=== PATIENT | female | born 1990 | race Caucasian/White ===

== ENCOUNTER 2016-10-03 15:25 | Emergency (ER) | payer BC ==
[2016-10-03] MEDS ORDERED: Aspirin Low Dose CHEW TAB* 81 MG PO ONE (19:48)
[2016-10-03 20:56] LABS: Hematocrit 39 % (35-47); Hemoglobin 12.8 g/dl (12.0-16.0); Mean Corpuscular HGB Conc 33 g/dl (31-36); Mean Corpuscular Hemoglobin 30 pg (27-31); Mean Corpuscular Volume 90 fL (80-97); Mean Platelet Volume 9 um3 (7.4-10.4); Red Blood Count 4.36 10^6/ul (4.0-5.4); Red Cell Distribution Width 13 % (10.5-15); White Blood Count 11.3 10^3/ul (3.5-10.8)
[2016-10-03 21:12] LABS: ALT 11 U/L (7-52); AST 14 U/L (13-39); Albumin 4.6 g/dL (3.2-5.2); Alkaline Phosphatase 47 U/L (34-104); Anion Gap 8 mmol/L (2-11); BUN/Creatinine Ratio 17.8 (8-20); Blood Urea Nitrogen 13 mg/dL (6-24); CO2 Carbon Dioxide 22 mmol/L (22-32); Calcium 9.9 mg/dL (8.6-10.3); Chloride 105 mmol/L (101-111); EGFR African American 124.9 (>60); EGFR Non-African American 97.1 (>60); Globulin 2.9 g/dL (2-4); Glucose 88 mg/dL (70-100); Potassium 3.8 mmol/L (3.5-5.0); Sodium 135 mmol/L (133-145); Total Protein 7.5 g/dL (6.4-8.9)
--- NOTE | 2016-10-03 21:12 | RAD ---
INDICATION: Chest pain. COMPARISON: There are no prior studies available for comparison. TECHNIQUE: Dual-energy PA and lateral views of the chest were obtained. FINDINGS: The heart is within normal limits in size. Mediastinal and hilar contours appear within normal limits. The lungs are clear. No pleural effusion or pneumothorax is seen. IMPRESSION: NO EVIDENCE FOR ACTIVE CARDIOPULMONARY DISEASE.
--- NOTE | 2016-10-03 22:11 | ED ---
Chris Jimenes Alfonso, scribed for Seamus Villarreal on 10/03/16 at 1943 . HPI Chest Pain - HPI Summary HPI Summary: This patient is a 25 year old F presenting to [facility] accompanied by male with a chief complaint of left sided chest pain present between 0700 and 1430 today. The patient rates the current pain 0/10 in severity. Symptoms aggravated by nothing and alleviated by spontaneous resolution. Patient reports SOB (at approximately noon which has resolved). She presented to [facility] urgent care earlier today where a CXR was ordered. - History of Current Complaint Chief Complaint: EDChestPainROMI Time Seen by Provider: 10/03/16 19:28 Hx Obtained From: Patient Onset/Duration: Started Hours Ago - 0700 to 1430 today, Resolved Timing: Constant Initial Severity: Moderate Current Severity: None Pain Intensity: 0 Pain Scale Used: 0-10 Numeric Chest Pain Location: Left Anterior, Left Lateral Aggravating Factor(s): Nothing Alleviating Factor(s): Spontaneous Resolution Associated Signs and Symptoms: Positive: Shortness of Breath - Allergy/Home Medications Allergies/Adverse Reactions: Allergies Allergy/AdvReac Type Severity Reaction Status Date / Time Morphine Allergy Hives Verified 10/03/16 15:33 PMH/Surg Hx/FS Hx/Imm Hx Sensory History: Denies: Hx Deafness Opthamlomology History: Denies: Hx Legally Blind - Surgical History Surgery Procedure, Year, and Place: Infectious Disease History: No Infectious Disease History: Denies: History Other Infectious Disease, Traveled Outside the [place] in Last 30 Days - Family History Known Family History: Negative: Blood Disorder - Social History Alcohol Use: Occasionally Substance Use Type: Reports: None Smoking Status (MU): Never Smoked Tobacco Review of Systems Negative: Fever Positive: Chest Pain Positive: Shortness Of Breath All Other Systems Reviewed And Are Negative: Yes Physical Exam Triage Information Reviewed: Yes Vital Signs On Initial Exam: Initial Vitals Temp Pulse Resp BP Pulse Ox 98.6 F 85 16 131/68 97 10/03/16 15:34 10/03/16 15:34 10/03/16 15:34 10/03/16 15:34 10/03/16 15:34 Vital Signs Reviewed: Yes Appearance: Positive: Well-Appearing, No Pain Distress Skin: Positive: Warm, Skin Color Reflects Adequate Perfusion, Dry Head/Face: Positive: Normal Head/Face Inspection Eyes: Positive: EOMI, LATANYA ENT: Positive: Normal ENT inspection Neck: Positive: Supple, Nontender Respiratory/Lung Sounds: Positive: Clear to Auscultation, Breath Sounds Present Cardiovascular: Positive: RRR, Pulses are Symmetrical in both Upper and Lower Extremities Abdomen Description: Positive: Nontender, Soft Bowel Sounds: Positive: Present Musculoskeletal: Positive: Normal, Strength/ROM Intact Neurological: Positive: Normal, Sensory/Motor Intact, Alert, Oriented to Person Place, Time - Rober Coma Scale Coma Scale Total: 15 Diagnostics - Vital Signs Vital Signs Temp Pulse Resp BP Pulse Ox 10/03/16 19:00 74 10 107/71 99 10/03/16 18:46 77 15 100/71 100 10/03/16 18:43 98 F 77 16 100/71 100 10/03/16 18:21 19 10/03/16 18:20 80/49 10/03/16 17:21 97.9 F 94 16 132/73 99 10/03/16 15:34 98.6 F 85 16 131/68 97 - Laboratory Result Diagrams: 10/03/16 20:45 10/03/16 20:45 Lab Statement: Any lab studies that have been ordered have been reviewed, and results considered in the medical decision making process. - Radiology CXR Radiology Interpretation Completed By: Radiologist - NO EVIDENCE FOR ACTIVE CARDIOPULMONARY DISEASE. - EKG 1540 Cardiac Rate: NL - BPM 83 EKG Rhythm: Sinus Rhythm ST Segment: Normal Chest Pain Course/Dx - Course Assessment/Plan: This patient is a 25 year old F [facility] accompanied by male with a chief complaint of left sided chest pain present between 0700 and 1430 today. The patient rates the current pain 0/10 in severity. Symptoms aggravated by nothing and alleviated by spontaneous resolution. Patient reports SOB (at approximately noon which has resolved). An EKG reveals NSR. CXR reveals NO EVIDENCE FOR ACTIVE CARDIOPULMONARY DISEASE. Patient will be discharged with follow up from PCP. The patient is agreeable with this plan. - Diagnoses Provider Diagnoses: Atypical chest pain Discharge - Discharge Plan Condition: Stable Disposition: HOME Patient Education Materials: Chest Pain (ED) Referrals: [facility] PHYSICIAN REFERRAL [Outside] - 3 Days The documentation as recorded by the Chris millard Alfonso accurately reflects the service I personally performed and the decisions made by me, Seamus Villarreal.
[2016-10-03 22:37] VITALS: BP 107/60
== END 2016-10-03 22:41 | disposition home or self-care (01) ==
LOC: ED 15:25
DX: R07.89 Other chest pain (principal); R06.02 Shortness of breath
CPT/HCPCS: 36415; 71020; 80053; 83735; 84484; 84702; 85025; 85379; 85610; 85730; 93005; 99283

== ENCOUNTER 2017-06-08 18:53 | Emergency (ER) | payer BC ==
--- NOTE | 2017-06-08 18:59 | UC ---
Cardiac HPI - HPI Summary HPI Summary: Pt presents with epigastric pain and SOB the began around 1000 this morning. She tells me that her pain began abruptly and has seemed to get progressively worse throughout the day. Has never had pain like this before, but says her mom has GERD and wonders if this is the what she has. Also reports feeling nauseous and has had a decreased appetite today. Has also had cold like symptoms for the last few days with mild sinus congestion and intermittent cough. Denies fever, chills, dysuria, headache, or dizziness. - History of Current Complaint Stated Complaint: PAIN WITH INHALATION Time Seen by Provider: 06/08/17 18:58 Hx Obtained From: Patient Hx Last Menstrual Period: 10/27/15 Onset/Duration: Sudden Onset Initial Severity: Mild Current Severity: Moderate Pain Intensity: 7 Chest Pain Location: Lower Sternal - Allergy/Home Medications Allergies/Adverse Reactions: Allergies Allergy/AdvReac Type Severity Reaction Status Date / Time morphine Allergy Hives Verified 06/08/17 19:12 Home Medications: Home Medications NK [No Home Medications Reported] 06/08/17 [History Confirmed 06/08/17] PMH/Surg Hx/FS Hx/Imm Hx - Additional Past Medical History Additional PMH: None Previously Healthy: Yes - Surgical History Surgical History: Yes Surgery Procedure, Year, and Place: - Family History Known Family History: Negative: Blood Disorder - Social History Occupation: Employed Full-time Lives: With Family Alcohol Use: Occasionally Substance Use Type: None Smoking Status (MU): Never Smoked Tobacco Review of Systems Constitutional: Negative Skin: Negative Eyes: Negative ENT: Negative Respiratory: Shortness Of Breath Cardiovascular: Chest Pain Gastrointestinal: Nausea, Other - Epigastric pain Genitourinary: Negative Motor: Negative Neurovascular: Negative Musculoskeletal: Negative Neurological: Negative Psychological: Negative All Other Systems Reviewed And Are Negative: Yes Physical Exam - Summary Physical Exam Summary: GENERAL: NAD. WDWN. No pain distress. SKIN: No rashes, sores, ulcers, masses, lesions. NECK: Supple. Nontender. No lymphadenopathy. CHEST: CTAB. No r/r/w. No accessory muscle use. Breathing comfortably and in no distress. CV: RRR. Without m/r/g. Pulses intact. Brisk cap refill. ABDOMEN: Moderate TTP over epigastric region. Soft. No distention or guarding. , No organomegaly. No CVA tenderness. Bowel sounds present x4. NEURO: Alert. CN II-XII grossly intact. PSYCH: Age appropriate behavior. Triage Information Reviewed: Yes - Assessment/Plan Course Of Treatment: EKG NSR 75bpm no ST elevation as read by Dr. Ayala. Given her abrupt onset of symptoms, subjective SOB, and epigastric pain - I advised pt to seek further evaluation in the ED. She was agreeable to this plan - declined ambulance and her partner will drive her. - Clinical Impression Provider Diagnoses: Epigastric pain. SOB Discharge - Sign-Out/Discharge Documenting (check all that apply): Discharge - Discharge Plan Condition: Stable Disposition: HOME Referrals: No Primary Care Phys,NOPCP [Primary Care Provider] - Additional Instructions: Please go directly to the [facility] [place] ER for further evaluation of your upper abdominal pain and nausea. - Billing Disposition and Condition Condition: STABLE Disposition: HOME
[2017-06-08 19:12] VITALS: BP 116/81
== END 2017-06-08 19:30 | disposition home or self-care (01) ==
LOC: UCEAST 18:53
DX: R10.13 Epigastric pain (principal); R06.02 Shortness of breath; Z88.5 Allergy status to narcotic agent
CPT/HCPCS: 93005; 99212; G0463

== ENCOUNTER 2017-06-08 19:47 | Emergency (ER) | payer BC ==
[2017-06-08] MEDS ORDERED: Famotidine TAB* 20 MG PO ONE (20:39)
[2017-06-08] MEDS ORDERED: Ondansetron INJ* 2 MG/ML VIAL IV ONE (21:52)
[2017-06-08] MEDS ORDERED: NS 0.9% 1000 ML* 1,000 ML IV ONE (21:52)
[2017-06-08] MEDS ORDERED: diPHENhydraMINE IV* 50 MG/ML 1 ml VIAL (BENADRYL) IV ONE (21:53)
[2017-06-08] MEDS ORDERED: Morphine VIAL* 10 MG/ML 1 ML VIAL IV ONE (21:53)
[2017-06-08] MEDS ORDERED: Morphine VIAL* 4 MG/ML VIAL (1 ml vial) IV ONE ×2 (22:15→22:20)
[2017-06-08 22:36] LABS: ABS Basophils 0.1 10^3/ul (0-0.2); ABS Eosinophils 0.1 10^3/ul (0-0.6); ABS Lymphocytes 2.9 10^3/ul (1.0-4.8); ABS Monocytes 0.7 10^3/ul (0-0.8); ABS Neutrophils 6.3 10^3/ul (1.5-7.7); ABS Nucleated RBC 0 10^3/ul; Hematocrit 39 % (35-47); Hemoglobin 13.1 g/dl (12.0-16.0); Lymphocyte % 28.9 % (25-47); Mean Corpuscular HGB Conc 34 g/dl (31-36); Mean Corpuscular Hemoglobin 30 pg (27-31); Mean Corpuscular Volume 90 fL (80-97); Mean Platelet Volume 9.1 um3 (7.4-10.4); Nucleated Red Blood Cells % 0.1; Platelet Count 238 10^3/ul (150-450); Red Blood Count 4.31 10^6/ul (4.0-5.4); Red Cell Distribution Width 13 % (10.5-15)
[2017-06-08 22:37] LABS: Urine Appearance Clear; Urine Blood Negative (Negative); Urine Color Straw; Urine Ketones Negative (Negative); Urine Protein Negative (Negative); Urine Specific Gravity 1.008 (1.010-1.030); Urine Urobilinogen Negative (Negative)
[2017-06-08 22:57] LABS: EGFR Non-African American 96.4 (>60)
--- NOTE | 2017-06-08 22:57 | ED ---
Abdominal Pain/Female - HPI Summary HPI Summary: Complains of epigastric pain radiating to right upper quadrant and back, with associated nausea starting at 10 AM today. Abdominal pain is new onset, constant, achy, worse with movement, worse after meals. Nausea is intermittent , worse with movement. Patient was seen at , sent to the ED for further evaluation. Denies fever, cough, sore throat, CP, SOB, V/D, change in urine, vaginal symptoms, change in BM. Abdominal/pelvic surgical history 1. Denies regular EtOH. - History of Current Complaint Chief Complaint: EDAbdPain Stated Complaint: ABD PAIN Time Seen by Provider: 06/08/17 21:33 Hx Obtained From: Patient Hx Last Menstrual Period: 10/27/15 Onset/Duration: Sudden Onset Timing: Constant Severity Initially: Mild Severity Currently: Moderate Pain Intensity: 8 Pain Scale Used: 0-10 Numeric Location: Discrete At: RUQ, Epigastric Radiates to: Back Character: Cramping Aggravating Factor(s): Food, Movement Alleviating Factor(s): Nothing Associated Signs and Symptoms: Positive: Back Pain, Nausea - Risk Factors Ectopic Risk Factor: Negative Ovarian Torsion Risk Factor: Negative Allergies/Adverse Reactions: Allergies Allergy/AdvReac Type Severity Reaction Status Date / Time morphine Allergy Hives Verified 06/08/17 19:52 PMH/Surg Hx/FS Hx/Imm Hx Sensory History: Denies: Hx Legally Blind, Hx Deafness Opthamlomology History: Denies: Hx Legally Blind - Surgical History Surgery Procedure, Year, and Place: Infectious Disease History: No Infectious Disease History: Denies: History Other Infectious Disease, Traveled Outside the [place] in Last 30 Days - Family History Known Family History: Negative: Blood Disorder - Social History Alcohol Use: Occasionally Substance Use Type: Reports: None Smoking Status (MU): Never Smoked Tobacco Review of Systems Constitutional: Negative Eyes: Negative ENT: Negative Cardiovascular: Negative Respiratory: Negative Positive: Abdominal Pain, Nausea Genitourinary: Negative Musculoskeletal: Negative Skin: Negative Neurological: Negative Psychological: Normal All Other Systems Reviewed And Are Negative: Yes Physical Exam - Summary Physical Exam Summary: Negative Edwards's. Positive right lower quadrant pain with palpation. No pain with palpation of any other quadrant. Triage Information Reviewed: Yes Vital Signs On Initial Exam: Initial Vitals Temp Pulse Resp BP Pulse Ox 97.3 F 73 18 116/85 98 06/08/17 19:49 06/08/17 19:49 06/08/17 19:49 06/08/17 19:49 06/08/17 19:49 Vital Signs Reviewed: Yes Appearance: Positive: Well-Appearing Skin: Positive: Warm Head/Face: Positive: Normal Head/Face Inspection Eyes: Positive: Normal Neck: Positive: Supple Respiratory/Lung Sounds: Positive: Clear to Auscultation Cardiovascular: Positive: Normal Abdomen Description: Positive: Other: Musculoskeletal: Positive: Normal Neurological: Positive: Normal Psychiatric: Positive: Normal AVPU Assessment: Alert - Rober Coma Scale Best Eye Response: 4 - Spontaneous Best Motor Response: 6 - Obeys Commands Best Verbal Response: 5 - Oriented Coma Scale Total: 15 Diagnostics - Vital Signs Vital Signs Temp Pulse Resp BP Pulse Ox 06/08/17 22:21 18 06/08/17 19:49 97.3 F 73 18 116/85 98 - Laboratory Lab Results: Lab Results 06/08/17 06/08/17 Range/Units 22:05 22:05 WBC 10.0 (3.5-10.8) 10^3/ul RBC 4.31 (4.0-5.4) 10^6/ul Hgb 13.1 (12.0-16.0) g/dl Hct 39 (35-47) % MCV 90 (80-97) fL MCH 30 (27-31) pg MCHC 34 (31-36) g/dl RDW 13 (10.5-15) % Plt Count 238 (150-450) 10^3/ul MPV 9.1 (7.4-10.4) um3 Neut % (Auto) 62.9 (38-83) % Lymph % (Auto) 28.9 (25-47) % [place] % (Auto) 6.6 (0-7) % Eos % (Auto) 1.0 (0-6) % Baso % (Auto) 0.6 (0-2) % Absolute Neuts (auto) 6.3 (1.5-7.7) 10^3/ul Absolute Lymphs (auto) 2.9 (1.0-4.8) 10^3/ul Absolute Monos (auto) 0.7 (0-0.8) 10^3/ul Absolute Eos (auto) 0.1 (0-0.6) 10^3/ul Absolute Basos (auto) 0.1 (0-0.2) 10^3/ul Absolute Nucleated RBC 0 10^3/ul Nucleated RBC % 0.1 Urine Color Straw Urine Appearance Clear Urine pH 6.0 (5-9) Ur Specific Advance 1.008 L (1.010-1.030) Urine Protein Negative (Negative) Urine Ketones Negative (Negative) Urine Blood Negative (Negative) Urine Nitrate Negative (Negative) Urine Bilirubin Negative (Negative) Urine Urobilinogen Negative (Negative) Ur Leukocyte Esterase Negative (Negative) Urine Glucose Negative (Negative) Result Diagrams: 06/08/17 22:05 06/08/17 22:05 Lab Statement: Any lab studies that have been ordered have been reviewed, and results considered in the medical decision making process. - CT ab/pel CT Interpretation: No Acute Changes CT Interpretation Completed By: Radiologist Re-Evaluation - Re-Evaluation 1 Re-Evaluation Time: 02:39 Change: Improved Comment: Patient resting comfortably. States pain and nausea have been controlled. Abdominal Pain Fem Course/Dx - Course Course Of Treatment: Labs and imaging unremarkable. Symptoms controlled Patient will be sent home with medication for nausea and pain control. - Diagnoses Provider Diagnoses: Epigastric pain, Nausea Discharge - Sign-Out/Discharge Documenting (check all that apply): Discharge - Discharge Plan Condition: Stable Disposition: HOME Patient Education Materials: Biliary Colic (ED), Epigastric Pain (ED), Gastroesophageal Reflux Disease (ED) Referrals: No Primary Care Phys,NOPCP [Primary Care Provider] - Jak Markhma MD [Medical Doctor] - Additional Instructions: Follow-up with GI specialist Dr. Markham. Return to the ED for any new or worsening symptoms - Billing Disposition and Condition Condition: STABLE Disposition: HOME
[2017-06-08] MEDS ORDERED: Iohexol 300* (CONTRAST) 10 ML SDV IV ONE (23:28)
[2017-06-09 03:31] VITALS: BP 120/70
--- NOTE | 2017-06-09 08:02 | RAD ---
CLINICAL HISTORY: Abdominal pain COMPARISON: CT abdomen pelvis dated July 16, 2009 TECHNIQUE: Contrast enhanced CT examination of the abdomen and pelvis from the lung bases through the initial tuberosities. The patient received 100 mL Omnipaque 300 intravenously prior to imaging. FINDINGS: VISUALIZED LUNG BASES: The visualized lung bases are grossly clear. There is no pleural effusion. ABDOMEN AND PELVIS: The right lobe of the liver there is a 9 mm hypoattenuating focus (axial image 11) exhibiting peripheral enhancement characteristic of a hemangioma. The liver is otherwise homogenous in attenuation. The spleen, pancreas and adrenal glands are grossly normal in appearance. The gallbladder is normal. The kidneys are normal in appearance without focal mass, calcification or signs of hydronephrosis. Evaluation of the gastrointestinal tract is limited without oral contrast. The small and large bowel are not distended. The patient's normal appendix is identified in the right lower quadrant measuring just under 7 mm in diameter (coronal image 43). There is no gross retroperitoneal or mesenteric lymphadenopathy. The pelvic viscera is normal in appearance. The abdominal aorta and iliac arteries are normal in course and diameter. There are no sinister bone lesions. IMPRESSION: 1. No CT apparent acute abnormality. 2. Likely hemangioma in the right lobe of the liver. On a nonemergent basis this can be further characterized with liver ultrasound.
== END 2017-06-09 03:33 | disposition home or self-care (01) ==
LOC: ED 19:47
DX: M54.9 Dorsalgia, unspecified (principal); R11.0 Nausea; R10.13 Epigastric pain
CPT/HCPCS: 36415; 74177; 80053; 81003; 83605; 83690; 84702; 85025; 86140; 96374; 96375; 99284; A9270-GY; J1200; J2270; J2405; Q9967

== ENCOUNTER 2017-08-11 10:16 | Emergency (ER) | payer BC ==
[2017-08-11 10:31] VITALS: BP 128/89
--- NOTE | 2017-08-11 11:41 | UC ---
Kori Jimenes Jacob, scribed for Iron Estrada MD on 08/11/17 at 1103 . Neck Pain HPI - HPI Summary HPI Summary: PT is a 26 y/o female presenting w/ neck pain alongside headache, muscle aches, and fatigue. Pt went to bed at 2200 and woke up due to pain at midnight on . Pt states that she had severe pain in the right side of the back of the neck. Neck pain at the time is described as shooting. During the day, she states that she experienced some finger numbness, but this passed. She had a sore throat on 08/09/17, but these symptoms resolved. On 08/10/17 pt states symptoms improved slightly but returned later in the day. She feels exhausted and lethargic and rates neck pain 3/10 today. Pt says she also currently has a HOWARD in back of her head and some lower back pain. Pt notes some pain to left of periumbilical which waxes and wanes, currently rates this pain 2/10. She denies cough, chest congestion, diarrhea, rhinorrhea, and rash. She has no apparent insect bites and has not been out in the [place] recently. 08/08/17 was her LNMP and she denies possibility of . - History of Current Complaint Chief Complaint: UCRespiratory Stated Complaint: CHILLS,FEVER,FATIGUE Time Seen by Provider: 08/11/17 10:26 Hx Obtained From: Patient Hx Last Menstrual Period: 08/08/17 ?: No Onset/Duration Of Injury/Symptoms: Days - 2 days ago Timing: Constant Onset/Duration: Sudden Onset Severity: Mild Pain Intensity: 3 Pain Scale Used: 0-10 Numeric - 3/10 Location: Discrete At: - right upper part of the back of the neck Character: Sharp - described as shooting Aggravating Factors: Other: - upper right part of back neck is tender to palpation Associated Signs & Symptoms: Positive: Headache - back of head - Allergies/Home Medications Allergies/Adverse Reactions: Allergies Allergy/AdvReac Type Severity Reaction Status Date / Time morphine Allergy Hives Verified 08/11/17 10:31 PMH/Surg Hx/FS Hx/Imm Hx Endocrine History: Diabetes - Negative Cardiovascular History: Hypertension - Negative Cancer History: Other - Negative Other Cancer History: . - Surgical History Surgical History: Yes Surgery Procedure, Year, and Place: - Family History Known Family History: Negative: Blood Disorder - Social History Alcohol Use: Occasionally Substance Use Type: None Smoking Status (MU): Never Smoked Tobacco Review Of Systems Constitutional: Positive: Chills, Fatigue. Negative: Fever Skin: Negative: Rash ENT: Negative: Sore Throat - currently resolved Respiratory: Negative: Cough, Other - SOB Gastrointestinal: Negative: Diarrhea Genitourinary: Negative: Dysuria Musculoskeletal: Positive: Myalgia, Other: - lower back and neck pain Neurological: Positive: Headache - back of head All Other Systems Reviewed And Are Negative: Yes Physical Exam - Summary Physical Exam Summary: General: well-appearing, no pain distress Skin: warm, color reflects adequate perfusion, dry Head: normal Eyes: EOMI, LATANYA ENT: normal Neck: no acute distress, mildly tender to palpation on lateral neck sections. Supple, FROM Respiratory: CTA, breath sounds present Cardiovascular: RRR Abdomen: minimal tenderness to left of periumbilical, pain 2/10. No rebound. Bowel: present Musculoskeletal: normal, strength/ROM intact Neurological: sensory/motor intact, A&O x3 Psychological: affect/mood appropriate Triage Information Reviewed: Yes Vital Signs: Initial Vital Signs Temp 99.5 F 08/11/17 10:29 Pulse 86 08/11/17 10:29 Resp 16 08/11/17 10:29 BP 128/89 08/11/17 10:29 Pulse Ox 100 08/11/17 10:29 Vital Signs Reviewed: Yes Neck Pain Course/Dx - Course Course Of Treatment: NECK IS NOT STIFF ON EXAM. NON TOXIC APPEARANCE. HE IS OCCIPITAL AND NOT GLOBAL. PATIENT'S FATHER BEING TREATED FOR LYME. DISCUSSED S/ SX OF MENINGITIS WHICH CLINICALLY, TASHA DOES NOT HAVE AT THIS TIME. DISCUSSED THE NEED TO GET EVALUATED IN THE ED IF HAVING SX OF MENINGITIS. F/U PMD; RETURN SOONER IF WORSE. - Differential Dx/Diagnosis Provider Diagnoses: MYALGIAS. FEVER Discharge - Sign-Out/Discharge Documenting (check all that apply): Discharge/Admit/Transfer - Discharge Plan Condition: Stable Disposition: HOME Prescriptions: DOXYcycline CAP(*) [DOXYcycline 100MG CAP(*)] 100 mg PO BID #28 cap Patient Education Materials: Fever in Adults (ED) Referrals: [facility] [Outside] No Primary Care Phys,NOPCP [Primary Care Provider] - Additional Instructions: FOLLOW UP WITH YOUR DOCTOR. AT THIS TIME, YOUR EXAM DOES NOT INDICATE A SERIOUS INFECTION SUCH MENINGITIS HOWEVER, IF YOU HAVE ANY SYMPTOMS OF MENINGITIS GET EVALUATED IN THE EMERGENCY DEPARTMENT. GET RECHECKED FOR ANY WORSENING OF YOUR CONDITION; WORSENING OR PERSISTENT HEADACHE/NECK PAIN, YOU FEEL ILL OR QUESTIONS OR CONCERNS. - Billing Disposition and Condition Condition: STABLE Disposition: Home The documentation as recorded by the Kori millard Jacob accurately reflects the service I personally performed and the decisions made by me, Iron Estrada MD.
[2017-08-11 15:38] LABS: ABS Basophils 0 10^3/ul (0-0.2); ABS Eosinophils 0 10^3/ul (0-0.6); ABS Lymphocytes 1.4 10^3/ul (1.0-4.8); ABS Monocytes 0.3 10^3/ul (0-0.8); ABS Neutrophils 3.8 10^3/ul (1.5-7.7); ABS Nucleated RBC 0 10^3/ul; Eosinophil % 0.5 % (0-6); Hematocrit 36 % (35-47); Lymphocyte % 24.7 % (25-47); Mean Corpuscular HGB Conc 34 g/dl (31-36); Mean Corpuscular Hemoglobin 30 pg (27-31); Mean Corpuscular Volume 91 fL (80-97); Mean Platelet Volume 9.1 um3 (7.4-10.4); Nucleated Red Blood Cells % 0; Platelet Count 219 10^3/ul (150-450); Red Blood Count 3.95 10^6/ul (4.00-5.40); Red Cell Distribution Width 13 % (10.5-15); White Blood Count 5.5 10^3/ul (3.5-10.8)
[2017-08-11 16:05] LABS: EGFR Non-African American 114.2 (>60)
--- NOTE | 2017-08-12 09:00 | UC ---
- Progress Note Progress Note: CBC/CMP/mag - wnl CRP - slightly elevated no change in treatment plan 08/12/2017 900 ljj Discharge - Sign-Out/Discharge Documenting (check all that apply): Post-Discharge Follow Up - Discharge Plan Condition: Stable Disposition: HOME Prescriptions: DOXYcycline CAP(*) [DOXYcycline 100MG CAP(*)] 100 mg PO BID #28 cap Patient Education Materials: Fever in Adults (ED) Referrals: [facility] PHYSICIAN REFERRAL [Outside] No Primary Care Phys,NOPCP [Primary Care Provider] - Additional Instructions: FOLLOW UP WITH YOUR DOCTOR. AT THIS TIME, YOUR EXAM DOES NOT INDICATE A SERIOUS INFECTION SUCH MENINGITIS HOWEVER, IF YOU HAVE ANY SYMPTOMS OF MENINGITIS GET EVALUATED IN THE EMERGENCY DEPARTMENT. GET RECHECKED FOR ANY WORSENING OF YOUR CONDITION; WORSENING OR PERSISTENT HEADACHE/NECK PAIN, YOU FEEL ILL OR QUESTIONS OR CONCERNS. - Billing Disposition and Condition Condition: STABLE Disposition: Home
== END 2017-08-11 11:01 | disposition home or self-care (01) ==
LOC: UCEAST 10:16
DX: M79.1 Myalgia (principal); R50.9 Fever, unspecified; R51 Headache; R53.83 Other fatigue; M54.2 Cervicalgia
CPT/HCPCS: 36415; 80053; 85025; 86140; 86618; 99212; G0463

== ENCOUNTER 2018-04-27 12:37 | Emergency (ER) | payer BC ==
[2018-04-27 13:32] LABS: Urine Appearance Clear; Urine Bilirubin Negative (Negative); Urine Blood Negative (Negative); Urine Color Colorless; Urine Glucose Negative (Negative); Urine Ketones Trace (Negative); Urine Nitrite Negative (Negative); Urine Protein Negative (Negative); Urine Specific Gravity 1.002 (1.010-1.030); Urine Urobilinogen Negative (Negative)
[2018-04-27 15:02] LABS: ABS Basophils 0 10^3/ul (0-0.2); ABS Eosinophils 0 10^3/ul (0-0.6); ABS Lymphocytes 1.8 10^3/ul (1.0-4.8); ABS Monocytes 0.5 10^3/ul (0-0.8); ABS Neutrophils 7.7 10^3/ul (1.5-7.7); ABS Nucleated RBC 0 10^3/ul; Eosinophil % 0.2 %; Hematocrit 39 % (35-47); Hemoglobin 13.1 g/dl (12.0-16.0); Mean Corpuscular HGB Conc 34 g/dl (31-36); Mean Corpuscular Hemoglobin 30 pg (27-31); Mean Corpuscular Volume 90 fL (80-97); Mean Platelet Volume 9.4 fL (7.4-10.4); Nucleated Red Blood Cells % 0; Platelet Count 247 10^3/ul (150-450); Red Blood Count 4.34 10^6/ul (4.00-5.40); Red Cell Distribution Width 13 % (10.5-15); White Blood Count 10.1 10^3/ul (3.5-10.8)
[2018-04-27 15:16] LABS: ALT 9 U/L (7-52); AST 13 U/L (13-39); Albumin 4.7 g/dL (3.2-5.2); Albumin/Globulin Ratio 1.7 (1-3); Alkaline Phosphatase 44 U/L (34-104); Anion Gap 9 mmol/L (2-11); Blood Urea Nitrogen 15 mg/dL (6-24); CO2 Carbon Dioxide 23 mmol/L (22-32); Calcium 9.6 mg/dL (8.6-10.3); Chloride 104 mmol/L (101-111); EGFR African American 145.1 (>60); EGFR Non-African American 119.9 (>60); Globulin 2.8 g/dL (2-4); Glucose 87 mg/dL (70-100); Sodium 136 mmol/L (135-145); Total Protein 7.5 g/dL (6.4-8.9)
[2018-04-27 15:19] LABS: HCG Pregnancy < 0.60 mIU/mL
[2018-04-27] MEDS ORDERED: Ondansetron INJ* 2 MG/ML VIAL IV ONE (16:47)
[2018-04-27] MEDS ORDERED: NS 0.9% 1000 ML** 1,000 ML IV ONE (16:47)
[2018-04-27] MEDS ORDERED: Iohexol 300* (CONTRAST) 10 ML SDV IV ONE (18:21)
--- NOTE | 2018-04-27 20:30 | ED ---
Abdominal Pain/Female - HPI Summary HPI Summary: Patient complains of sudden onset right lower quadrant pain and nausea starting this a.m. the abdominal pain described as new onset, constant, radiating to right side back. Denies history of ovarian cysts, fever, cough, sore throat, CP , SOB, V/D, change in urine, change in BM, vaginal symptoms. Medical history is none. Abdominal surgical history . - History of Current Complaint Chief Complaint: EDAbdPain Stated Complaint: LOWER ABD PAIN PER PT Time Seen by Provider: 04/27/18 16:31 Hx Obtained From: Patient Hx Last Menstrual Period: 08/08/17 Onset/Duration: Sudden Onset, Lasting Hours Timing: Constant Severity Initially: Severe Severity Currently: Severe Pain Intensity: 8 Pain Scale Used: 0-10 Numeric Location: Discrete At: RLQ Radiates: Yes Radiates to: Back, Flank Character: Sharp Aggravating Factor(s): Nothing Alleviating Factor(s): Nothing Associated Signs and Symptoms: Positive: Nausea Allergies/Adverse Reactions: Allergies Allergy/AdvReac Type Severity Reaction Status Date / Time morphine Allergy Hives Verified 08/11/17 10:31 PMH/Surg Hx/FS Hx/Imm Hx Endocrine/Hematology History: Denies: Hx Diabetes Cardiovascular History: Denies: Hx Hypertension History: Denies: Hx Renal Disease Sensory History: Denies: Hx Legally Blind, Hx Deafness Opthamlomology History: Denies: Hx Legally Blind EENT History: Denies: Hx Deafness Neurological History: Denies: Hx Dementia Psychiatric History: Denies: Hx Autism - Surgical History Surgery Procedure, Year, and Place: Infectious Disease History: No Infectious Disease History: Denies: History Other Infectious Disease, Traveled Outside the [place] in Last 30 Days - Family History Known Family History: Negative: Blood Disorder - Social History Alcohol Use: Rare Substance Use Type: Reports: None Smoking Status (MU): Never Smoked Tobacco Review of Systems Constitutional: Negative Eyes: Negative ENT: Negative Cardiovascular: Negative Respiratory: Negative Positive: Abdominal Pain, Nausea Genitourinary: Negative Musculoskeletal: Negative Skin: Negative Neurological: Negative Psychological: Normal All Other Systems Reviewed And Are Negative: Yes Physical Exam - Summary Physical Exam Summary: Tenderness to palpation in right lower quadrant. Abdominal exam otherwise unremarkable. Lung sounds clear to auscultation bilaterally. RRR Triage Information Reviewed: Yes Vital Signs On Initial Exam: Initial Vitals Temp Pulse Resp BP Pulse Ox 99.0 F 97 18 133/73 99 04/27/18 12:45 04/27/18 12:45 04/27/18 12:45 04/27/18 12:45 04/27/18 12:45 Vital Signs Reviewed: Yes Appearance: Positive: Well-Appearing Skin: Positive: Warm Head/Face: Positive: Normal Head/Face Inspection Eyes: Positive: Normal Neck: Positive: Supple Respiratory/Lung Sounds: Positive: Clear to Auscultation Cardiovascular: Positive: Normal Abdomen Description: Positive: Other: Musculoskeletal: Positive: Normal Neurological: Positive: Normal Psychiatric: Positive: Normal AVPU Assessment: Alert - Rober Coma Scale Best Eye Response: 4 - Spontaneous Best Motor Response: 6 - Obeys Commands Best Verbal Response: 5 - Oriented Coma Scale Total: 15 Diagnostics - Vital Signs Vital Signs Temp Pulse Resp BP Pulse Ox 04/27/18 19:10 77 101/70 99 04/27/18 18:41 84 102/56 99 04/27/18 18:10 98 103/69 99 04/27/18 18:00 84 100 04/27/18 17:40 73 100/61 99 04/27/18 17:00 77 99 04/27/18 16:46 86 99 04/27/18 16:45 126/88 04/27/18 14:30 98.3 F 104 16 127/91 98 04/27/18 12:45 99.0 F 97 18 133/73 99 - Laboratory Lab Results: Lab Results 04/27/18 04/27/18 04/27/18 Range/Units 13:10 14:47 14:47 WBC 10.1 (3.5-10.8) 10^3/ul RBC 4.34 (4.00-5.40) 10^6/ul Hgb 13.1 (12.0-16.0) g/dl Hct 39 (35-47) % MCV 90 (80-97) fL MCH 30 (27-31) pg MCHC 34 (31-36) g/dl RDW 13 (10.5-15) % Plt Count 247 (150-450) 10^3/ul MPV 9.4 (7.4-10.4) fL Neut % (Auto) 76.4 % Lymph % (Auto) 18.0 % [place] % (Auto) 4.9 % Eos % (Auto) 0.2 % Baso % (Auto) 0.5 % Absolute Neuts (auto) 7.7 (1.5-7.7) 10^3/ul Absolute Lymphs (auto) 1.8 (1.0-4.8) 10^3/ul Absolute Monos (auto) 0.5 (0-0.8) 10^3/ul Absolute Eos (auto) 0 (0-0.6) 10^3/ul Absolute Basos (auto) 0 (0-0.2) 10^3/ul Absolute Nucleated RBC 0 10^3/ul Nucleated RBC % 0 Sodium 136 (135-145) mmol/L Potassium 4.0 (3.5-5.0) mmol/L Chloride 104 (101-111) mmol/L Carbon Dioxide 23 (22-32) mmol/L Anion Gap 9 (2-11) mmol/L BUN 15 (6-24) mg/dL Creatinine 0.60 (0.51-0.95) mg/dL Est GFR ( Amer) 145.1 (>60) Est GFR (Non-Af Amer) 119.9 (>60) BUN/Creatinine Ratio 25.0 H (8-20) Glucose 87 (70-100) mg/dL Calcium 9.6 (8.6-10.3) mg/dL Total Bilirubin 0.60 (0.2-1.0) mg/dL AST 13 (13-39) U/L ALT 9 (7-52) U/L Alkaline Phosphatase 44 (34-104) U/L Total Protein 7.5 (6.4-8.9) g/dL Albumin 4.7 (3.2-5.2) g/dL Globulin 2.8 (2-4) g/dL Albumin/Globulin Ratio 1.7 (1-3) Lipase < 10 L (11.0-82.0) U/L Beta HCG, Quant < 0.60 mIU/mL Urine Color Colorless Urine Appearance Clear Urine pH 7.0 (5-9) Ur Specific [place] 1.002 L (1.010-1.030) Urine Protein Negative (Negative) Urine Ketones Trace A (Negative) Urine Blood Negative (Negative) Urine Nitrate Negative (Negative) Urine Bilirubin Negative (Negative) Urine Urobilinogen Negative (Negative) Ur Leukocyte Esterase Negative (Negative) Urine Glucose Negative (Negative) Result Diagrams: 04/27/18 14:47 04/27/18 14:47 Lab Statement: Any lab studies that have been ordered have been reviewed, and results considered in the medical decision making process. Abdominal Pain Fem Course/Dx - Course Course Of Treatment: Patient complains of sudden onset right lower quadrant pain and nausea starting this a.m. the abdominal pain described as new onset, constant, radiating to right side back. Denies history of ovarian cysts, fever , cough, sore throat, CP, SOB, V/D, change in urine, change in BM, vaginal symptoms. Medical history is none. Abdominal surgical history . Physical exam:Tenderness to palpation in right lower quadrant. Abdominal exam otherwise unremarkable. Lung sounds clear to auscultation bilaterally. RRR. Vital signs within normal limits. Labs unremarkable. Pelvic ultrasound negative. CT abdomen and pelvis negative. Advised patient take ibuprofen. Rx for Zofran. Return for any worsening symptoms. Patient understands and approves of plan. - Diagnoses Provider Diagnoses: Abdominal pain Discharge - Sign-Out/Discharge Documenting (check all that apply): Patient Departure Patient Received Moderate/Deep Sedation with Procedure: No - Discharge Plan Condition: Stable Disposition: HOME Prescriptions: Ondansetron ODT TAB* [Zofran 4 MG Odt TAB*] 4 mg PO Q8H PRN 4 Days #14 tab.odt PRN Reason: Nausea Patient Education Materials: Acute Abdominal Pain (ED) Referrals: No Primary Care Phys,NOPCP [Primary Care Provider] - Additional Instructions: Ibuprofen for pain. Return to the ED for any new or worsening symptoms. - Billing Disposition and Condition Condition: STABLE Disposition: Home
[2018-04-27 20:58] VITALS: BP 118/63
== END 2018-04-27 20:57 | disposition home or self-care (01) ==
LOC: ED 12:37
DX: R10.31 Right lower quadrant pain (principal); Z88.5 Allergy status to narcotic agent
CPT/HCPCS: 36415; 74177; 76830; 80053; 81003; 83690; 84702; 85025; 96361; 96374; 99283; J2405; Q9967